=== PATIENT | female | born 1985 | race Caucasian/White ===

== ENCOUNTER 2018-03-27 13:23 | Emergency (ER) | END 2018-03-27 16:36 | disposition home or self-care (01) ==

== ENCOUNTER 2018-08-05 06:38 | Emergency (ER) | payer OTHER ==
[~2018-08-05] VITALS: Ht 167.6 cm; Wt 126.4 kg
[~2018-08-05 06:38] MED LIST: ACET500C5 PO; FOLI-49 PO; HYDR-4011 PO; HYDR25TA6 PO; ONDA4TAB14 PO; PRENAT PO; RANI150T5 PO
[2018-08-05 06:43] VITALS: Ht 167.6 cm; Wt 126.4 kg
[2018-08-05] MEDS ORDERED: SOD CHLORIDE 0.9% 1,000 ML IV STA (07:02)
[2018-08-05] MEDS ORDERED: morphine 2 MG INJ IV STA (07:02)
[2018-08-05] MEDS ORDERED: ONDANSETRON 4 MG INJ IV STA (07:02)
[2018-08-05] MEDS ORDERED: FAMOTIDINE 20 MG INJ IV STA (07:02)
--- NOTE | 2018-08-05 07:02 | ERD ---
ER Documentation Chief Complaint Chief Complaint upper abdominal pain radiating to back this morning, + vomiting HPI 33-year-old female, with history of cholelithiasis the pain is dull,, presents the emergency department, complaining of acute onset of right upper quadrant abdominal pain, radiating to the back. Constant, 4/10. No fever, no chills. The patient also reports 3 episodes of postprandial emesis. ROS All systems reviewed and are negative except as per history of present illness. Medications Home Meds Active Scripts Acetaminophen* (Tylenol*) 325 Mg Tablet, 2 TAB PO Q8 PRN for PAIN AND OR ELEVATED TEMP, #20 TAB Prov:JUSTEN BAUER MD 08/05/18 Ranitidine Hcl* (Zantac*) 150 Mg Tablet, 150 MG PO BID PRN for EPIGASTRIC PAIN, #10 TAB Prov:JUSTEN BAUER MD 08/05/18 Acetaminophen* (Tylophen*) 500 Mg Capsule, 1 CAP PO Q6H PRN for PAIN AND OR ELEVATED TEMP, #20 CAP Prov:JUSTEN BAUER MD 03/27/18 Ranitidine Hcl* (Ranitidine Hcl*) 150 Mg Tablet, 150 MG PO Q12, #60 TAB Prov:JUSTEN BAUER MD 03/27/18 Ondansetron (Ondansetron Odt) 4 Mg Tab.rapdis, 4 MG PO Q6H PRN for NAUSEA AND/OR VOMITING, #20 TAB Prov:AUDRA SAEZ PA-C 02/10/16 Hydrocodone/Acetaminophen ([place] 5-325 Tablet) 1 Each Tablet, 1 TAB PO Q6H PRN f or PAIN, #20 TAB Prov:AUDRA SAEZ PA-C 02/10/16 Reported Medications Folic Acid* (Folic Acid*) 1 Mg Tablet, 1 MG PO DAILY, TAB 04/20/14 Multivit/Min/Fol Ac/Iron/Pren* ( S*) 1 Tab Tab, 1 TAB PO DAILY, TAB 04/20/14 Hydrochlorothiazide* (Hydrochlorothiazide*) 25 Mg Tab, 25 MG PO DAILY, TAB 04/20/14 Allergies Allergies: Coded Allergies: No Known Allergies (Verified Allergy, Mild, 08/05/18) PMhx/Soc History of Surgery: No Anesthesia Reaction: No Hx Neurological Disorder: No Hx Respiratory Disorders: No Hx Cardiac Disorders: No Hx Psychiatric Problems: No Hx Miscellaneous Medical Probl: No Hx Alcohol Use: No Hx Substance Use: No Hx Tobacco Use: No FmHx Family History: diabetes; No coronary disease Physical Exam Vitals Vital Signs Date Temp Pulse Resp B/P (MAP) Pulse Ox O2 O2 Flow FiO2 Time Delivery Rate 08/05/18 97.9 86 18 143/87 99 06:43 (105) Physical Exam Const: No acute distress Head: Atraumatic Eyes: Normal Conjunctiva ENT: Normal External Ears, Nose and Mouth. Neck: Full range of motion. No meningismus. Resp: Clear to auscultation bilaterally Cardio: Regular rate and rhythm, no murmurs Abd: Soft, tender in the right upper quadrant area,? Becerra sign. Normal bowel sounds Skin: No petechiae or rashes Back: No midline or flank tenderness Ext: No cyanosis, or edema Neur: Awake and alert Psych: Normal Mood and Affect Result Diagram: 08/05/18 0729 08/05/18 0729 Results 24 hrs Laboratory Tests Test 08/05/18 07:29 White Blood Count 10.0 10^3/ul Red Blood Count 4.57 10^6/ul Hemoglobin 13.9 g/dl Hematocrit 40.8 % Mean Corpuscular Volume 89.3 fl Mean Corpuscular Hemoglobin 30.4 pg Mean Corpuscular Hemoglobin Concent 34.1 g/dl Red Cell Distribution Width 12.5 % Platelet Count 315 10^3/UL Mean Platelet Volume 10.1 fl Immature Granulocytes % 0.300 % Neutrophils % 70.8 % Lymphocytes % 20.7 % Monocytes % 5.8 % Eosinophils % 1.8 % Basophils % 0.6 % Nucleated Red Blood Cells % 0.0 /100WBC Immature Granulocytes # 0.030 10^3/ul Neutrophils # 7.1 10^3/ul Lymphocytes # 2.1 10^3/ul Monocytes # 0.6 10^3/ul Eosinophils # 0.2 10^3/ul Basophils # 0.1 10^3/ul Nucleated Red Blood Cells # 0.0 10^3/ul Urine Color YELLOW Urine Clarity CLEAR Urine pH 5.0 Urine Specific [place] 1.021 Urine Ketones NEGATIVE mg/dL Urine Nitrite NEGATIVE mg/dL Urine Bilirubin NEGATIVE mg/dL Urine Urobilinogen NEGATIVE mg/dL Urine Leukocyte Esterase NEGATIVE Miguel/ul Urine Microscopic RBC 7 /HPF Urine Microscopic WBC 2 /HPF Urine Mucus FEW /HPF Urine Hemoglobin 2+ mg/dL Urine Glucose NEGATIVE mg/dL Urine Total Protein NEGATIVE mg/dl Sodium Level 143 mmol/L Potassium Level 4.1 mmol/L Chloride Level 106 mmol/L Carbon Dioxide Level 28 mmol/L Anion Gap 9 Blood Urea Nitrogen 10 mg/dl Creatinine 0.53 mg/dl Est Glomerular Filtrat Rate mL/min > 60 mL/min Glucose Level 110 mg/dl Calcium Level 9.3 mg/dl Total Bilirubin 0.6 mg/dl Direct Bilirubin 0.00 mg/dl Indirect Bilirubin 0.6 mg/dl Aspartate Amino Transf (AST/SGOT) 25 IU/L Alanine Aminotransferase (ALT/SGPT) 24 IU/L Alkaline Phosphatase 140 IU/L Total Protein 7.8 g/dl Albumin 4.2 g/dl Globulin 3.60 g/dl Albumin/Globulin Ratio 1.16 Lipase 85 U/L Serum HCG, Qualitative NEGATIVE Current Medications Medications Dose Sig/Rosy Start Time Status Last (Trade) Ordered Route PRN Stop Time Admin Dose Reason Admin Sodium 1,000 ml @ Q1H STAT 08/05/18 DC 08/05/18 Chloride 1,000 mls/hr IV 07:02 07:39 08/05/18 08:01 Morphine 1 mg ONCE STAT 08/05/18 DC 08/05/18 Sulfate IV 07:02 07:39 (morphine) 08/05/18 07:07 Ondansetron 4 mg ONCE STAT 08/05/18 DC 08/05/18 HCl (Zofran IV 07:02 07:39 Inj) 08/05/18 07:07 Famotidine 20 mg ONCE STAT 08/05/18 DC 08/05/18 (Pepcid Iv) IV 07:02 07:39 08/05/18 07:07 Patient: NAVEED MEEHAN : 1985 Age: 33 Sex: F MR #: [id number] DOS: 08/05/18701 Ordering MD: JUSTEN BAUER MD Location: [facility] Room/Bed: PROCEDURE: ULTRASOUND LIMITED ABDOMEN CLINICAL INDICATION: 33-year-old female with abdominal pain. TECHNIQUE: Multiple sonographic of the right upper quadrant of the abdomen were obtained. The images were reviewed on a PACS workstation. COMPARISON: Right upper quadrant ultrasound March 27, 2018. FINDINGS: The pancreas is partially visualized and is otherwise without abnormal echogenicity. The liver displays diffuse increased echogenicity. The liver measures 18.0 cm in length. No evidence of intrahepatic biliary ductal dilatation is seen. The portal and hepatic veins are unremarkable. The gallbladder contains a shadowing stone measuring approximately 2.3 cm. The gallbladder wall thickness is within normal limits measuring 2.3 mm. No pericholecystic fluid is seen. The common bile duct measures 4.2 mm and is not dilated. The right kidney displays normal echogenicity. The right kidney measures 13.2 cm in maximal length. No caliectasis or hydronephrosis is seen. No free fluid is seen. IMPRESSION: 1. Hepatic steatosis. 2. Cholelithiasis. Procedures/MDM Vital signs stable. Differential diagnosis include but not limited to: UTI, colitis, gastroenteritis, kidney stones, irritable bowel syndrome, inflammatory bowel syndrome, malabsorption syndrome, cholelithiasis, food intolerance, medication side effect, pancreatitis, diverticulitis, bowel obstruction. Physical examination and clinical presentation consistent most likely with biliary colic, no evidence of acute cholecystitis. During the ED course the patient remained stable, no new complaints. The patient received treatment with IV fluids and IV medications presenting overall improvem ent of the symptoms. Results and clinical impression discussed with the patient who agrees with avelina cordova. The patient is stable to be treated outpatient and will be discharged home; some side effects of prescribed medications (headache, rash, nausea, vomiting, diarrhea, drowsiness, habituation, bleeding, hypertension, interactions with other medications) were reviewed. Follow up with the primary care provider in the next 48h is recommended. If symptoms persist, worsen or new symptoms develop, then patient should return to the ED immediately. Instructions explained and given directly by me to the patient with acknowledgment and demonstrated understanding. Disclaimer: Inadvertent spelling and grammatical errors are likely due to EHR/dictation software use and do not reflect on the overall quality of patient care. Also, please note that the electronic time recorded on this note does not necessarily reflect the actual time of the patient encounter. Departure Diagnosis: Primary Impression: Biliary colic Condition: Stable Additional Instructions: Thank you very much for allowing us to participate in your care. Your health and safety is our top priority at [facility]. Call your primary care doctor TOMORROW for an appointment during the next 2-4 days and bring all the information and medications prescribed. Have prescriptions filled and follow precisely the directions on the label. If the symptoms get worse and your provider is unavailable, return to the Emergency Department immediately. JUSTEN BAUER MD Aug 05, 2018 07:02
[2018-08-05] MEDS ORDERED: RANI150T35 PO (08:24)
[2018-08-05] MEDS ORDERED: ACET325T33 PO (08:24)
[2018-08-05 08:58] VITALS: BP 161/86; PULSE 74; RESP 17
== END 2018-08-05 09:09 | disposition home or self-care (01) ==
LOC: FTE 06:38
DX: K80.20 Calculus of gallbladder without cholecystitis without obstruction (principal)
CPT/HCPCS: 76705; 80053; 81001; 83690; 84703; 85025; J2270; J2405; J7030; Z7610; 36415; 96361; 96374; 96375

== ENCOUNTER 2018-10-27 21:45 | Emergency (ER) | payer OTHER ==
[~2018-10-27] VITALS: Ht 167.6 cm; Wt 128.5 kg
[~2018-10-27 21:45] MED LIST changes: +ACET325T33 PO; +RANI150T35 PO
[2018-10-27 22:01] VITALS: BP 158/83; PULSE 81; RESP 18; Ht 167.6 cm; Wt 128.5 kg
[2018-10-27] MEDS ORDERED: ACETAMINOPHEN 500 MG TAB PO STA (23:44)
--- NOTE | 2018-10-28 02:18 | ERD ---
ER Documentation Chief Complaint Chief Complaint vaginal bleeding/cramping x 1 hour, states 8 weeks HPI History of Present Illness: 33-year-old female who denies a past medical history coming in today with complaint of vaginal bleeding and lower abdominal cramping that is been present for 1 hour prior to arrival. Patient is G4, P2. Reports she is approximately 8 weeks . Patient reports that bleeding is consist ent with a menstrual cycle with very small clotting. At home pharmacological/nonpharmacological treatment for symptoms: Denies Denies social concerns; Denies recent foreign travel ROS All systems reviewed and are negative except as per history of present illness. Medications Home Meds Active Scripts Acetaminophen* (Tylenol*) 325 Mg Tablet, 2 TAB PO Q8 PRN for PAIN AND OR ELEVATED TEMP, #20 TAB Prov:JUSTEN BAUER MD 08/05/18 Ranitidine Hcl* (Zantac*) 150 Mg Tablet, 150 MG PO BID PRN for EPIGASTRIC PAIN, #10 TAB Prov:JUSTEN BAUER MD 08/05/18 Acetaminophen* (Tylophen*) 500 Mg Capsule, 1 CAP PO Q6H PRN for PAIN AND OR ELEVATED TEMP, #20 CAP Prov:JUSTEN BAUER MD 03/27/18 Ranitidine Hcl* (Ranitidine Hcl*) 150 Mg Tablet, 150 MG PO Q12, #60 TAB Prov:JUSTEN BAUER MD 03/27/18 Ondansetron (Ondansetron Odt) 4 Mg Tab.rapdis, 4 MG PO Q6H PRN for NAUSEA AND/OR VOMITING, #20 TAB Prov:AUDRA SAEZ PA-C 02/10/16 Hydrocodone/Acetaminophen ([place] 5-325 Tablet) 1 Each Tablet, 1 TAB PO Q6H PRN for PAIN, #20 TAB Prov:AUDRA SAEZ PA-C 02/10/16 Reported Medications Folic Acid* (Folic Acid*) 1 Mg Tablet, 1 MG PO DAILY, TAB 04/20/14 Multivit/Min/Fol Ac/Iron/Pren* ( S*) 1 Tab Tab, 1 TAB PO DAILY, TAB 04/20/14 Hydrochlorothiazide* (Hydrochlorothiazide*) 25 Mg Tab, 25 MG PO DAILY, TAB 04/20/14 Allergies Allergies: Coded Allergies: No Known Allergies (Verified Allergy, Mild, 10/27/18) PMhx/Soc History of Surgery: Yes (c section x 2) Anesthesia Reaction: No Hx Neurological Disorder: No Hx Respiratory Disorders: No Hx Cardiac Disorders: No Hx Psychiatric Problems: No Hx Miscellaneous Medical Probl: No Hx Alcohol Use: No Hx Substance Use: No Hx Tobacco Use: No Smoking Status: Never smoker FmHx Family History: diabetes, coronary disease Physical Exam Vitals Vital Signs Date Temp Pulse Resp B/P (MAP) Pulse Ox O2 O2 Flow FiO2 Time Delivery Rate 10/27/18 99.3 81 18 158/83 100 22:01 (108) Physical Exam Const: No acute distress, afebrile Head: Atraumatic Eyes: Normal Conjunctiva ENT: Normal External Ears, Nose and Mouth. Neck: Full range of motion. No meningismus. Resp: Clear to auscultation bilaterally Cardio: Regular rate and rhythm, no murmurs Abd: Soft, non tender, non distended. No guarding, no masses, no rigidity. Obese. Skin: No petechiae or rashes Back: No midline or flank tenderness Ext: No cyanosis, or edema Neur: Awake and alert x3, speaking in clear sentences, no focal deficits or facial asymmetry Psych: Normal Mood and Affect Result Diagram: 10/27/18 2351 Results 24 hrs Laboratory Tests Test 10/27/18 23:51 White Blood Count 12.2 10^3/ul Red Blood Count 4.25 10^6/ul Hemoglobin 12.9 g/dl Hematocrit 38.1 % Mean Corpuscular Volume 89.6 fl Mean Corpuscular Hemoglobin 30.4 pg Mean Corpuscular Hemoglobin Concent 33.9 g/dl Red Cell Distribution Width 13.0 % Platelet Count 301 10^3/UL Mean Platelet Volume 10.7 fl Immature Granulocytes % 0.300 % Neutrophils % 67.2 % Lymphocytes % 24.1 % Monocytes % 6.1 % Eosinophils % 1.8 % Basophils % 0.5 % Nucleated Red Blood Cells % 0.0 /100WBC Immature Granulocytes # 0.040 10^3/ul Neutrophils # 8.2 10^3/ul Lymphocytes # 2.9 10^3/ul Monocytes # 0.7 10^3/ul Eosinophils # 0.2 10^3/ul Basophils # 0.1 10^3/ul Nucleated Red Blood Cells # 0.0 10^3/ul Urine Color YELLOW Urine Clarity SLIGHTLY CLOUDY Urine pH 6.0 Urine Specific [place] 1.016 Urine Ketones NEGATIVE mg/dL Urine Nitrite NEGATIVE mg/dL Urine Bilirubin NEGATIVE mg/dL Urine Urobilinogen 1+ mg/dL Urine Leukocyte Esterase NEGATIVE Miguel/ul Urine Microscopic RBC 2 /HPF Urine Microscopic WBC 0 /HPF Urine Bacteria FEW /HPF Urine Hemoglobin 2+ mg/dL Urine Glucose NEGATIVE mg/dL Urine Total Protein NEGATIVE mg/dl Beta HCG, Quantitative 099575.0 mIU/ml Current Medications Medications Dose Sig/Rosy Start Time Status Last (Trade) Ordered Route PRN Stop Time Admin Dose Reason Admin 1,000 mg ONCE STAT 10/27/18 DC 10/27/18 Acetaminophen PO 23:44 23:58 (Tylenol 10/27/18 23:46 Tab) Procedures/MDM ED course includes a thorough examination and history. Medications Tylenol imaging: OB pelvic ultrasound Labs: CBC, beta quantitative, urinalysis, Rh Low suspicion for life-threatening medical emergency. Low suspicion for gy necologic/obstetrical emergency that requires hospitalization or immediate surgical intervention. Low suspicion for hemorrhage. Low suspicion for acute abdominal emergency. Low suspicion for infectious process that requires antibiotics. Otherwise healthy patient presenting with constellation of symptoms likely representing vaginal bleeding during /threatened as characterized by history, physical exam findings, lab findings, ultrasound findings. CBC: no e/o of systemic infection or severe anemia. Beta quantitative is 102k. Urinalysis negative for urinary tract infection. Rh is O+, no RhoGam indicated Patient reassessment 0205: No signs of hemorrhage at this time, bleeding has not worsened. Patient hemodynamically stable. No respiratory distress, otherwise relatively well appearing and nontoxic. Disposition given. Patient educated on diagnoses, prescriptions, follow-up care, return precautions. Strict return precautions given for worsening condition; questions answered discharge. Patient verbalizes understanding of discharge instructions as well as plan of care, return precautions, follow-up. Disposition for discharge with followup in 2 days with PCP/clinic. Departure Diagnosis: Primary Impression: Threatened miscarriage Additional Impression: Vaginal bleeding in patient at less than 20 weeks ges... Condition: Stable Patient Instructions: Bleeding During Early , Possible Miscarriage (Threatened ) Referrals: COMMUNITY CLINICS YOU HAVE RECEIVED A MEDICAL SCREENING EXAM AND THE RESULTS INDICATE THAT YOU DO NOT HAVE A CONDITION THAT REQUIRES URGENT TREATMENT IN THE EMERGENCY DEPARTMENT. FURTHER EVALUATION AND TREATMENT OF YOUR CONDITION CAN WAIT UNTIL YOU ARE SEEN IN YOUR DOCTORS OFFICE WITHIN THE NEXT 1-2 DAYS. IT IS YOUR RESPONSIBILITY TO MAKE AN APPOINTMENT FOR FOLOW-UP CARE. IF YOU HAVE A PRIMARY DOCTOR --you should call your primary doctor and schedule an appointment IF YOU DO NOT HAVE A PRIMARY DOCTOR YOU CAN CALL OUR PHYSICIAN REFERRAL HOTLINE AT IF YOU CAN NOT AFFORD TO SEE A PHYSICIAN YOU CAN CHOSE FROM THE FOLLOWING [facility] [address] [facility]. [facility] [address] [facility]. [facility] [address] [facility] [address] [facility] [address] [facility]. [facility] [address] [facility]. [facility] YOU HAVE RECEIVED A MEDICAL SCREENING EXAM AND THE RESULTS INDICATE THAT YOU DO NOT HAVE A CONDITION THAT REQUIRES URGENT TREATMENT IN THE EMERGENCY DEPARTMENT. FURTHER EVALUATION AND TREATMENT OF YOUR CONDITION CAN WAIT UNTIL YOU ARE SEEN IN YOUR DOCTORS OFFICE WITHIN THE NEXT 1-2 DAYS. IT IS YOUR RESPONSIBILITY TO MAKE AN APPOINTMENT FOR FOLOW-UP CARE. IF YOU HAVE A PRIMARY DOCTOR --you should call your primary doctor and schedule and appointment IF YOU DO NOT HAVE A PRIMARY DOCTOR YOU CAN CALL OUR PHYSICIAN REFERRAL HOTLINE AT . IF YOU CAN NOT AFFORD TO SEE A PHYSICIAN YOU CAN CHOSE FROM THE FOLLOWING [facility]: [facility] [address] [place] [address] [facility] [address] [place] [address] [facility] [address] [place] [address] [employer] [place] [address] [facility] [address] [place] [address] OFFICE FAX CARMINE DEVINE [address] [place] [id number] ( DR[address] FORDE AMISH [address] [facility] [place] [address] DR BOWMAN, [facility] [address] [facility], [address], [place] [address] JEIMY SAHURO [address] [facility] [place] [address] [facility] [address] [facility] [place] [address] [address] [facility], [facility] [address] - [address] [place] [address] [place] [address] [facility]. [address], [place] [address] [address] MORAN, [facility] [address] [place] [address] Additional Instructions: Thank you very much for allowing us to participate in your care. Your health and safety is our top priority at [facility]. It is important to read all discharge instructions and education provided in your discharge packet. *There is a heartbeat on the ultrasound at this time. Is very important to return to the emergency department if you develop worsening bleeding. Signs of life-threatening hemorrhage include soaking 1 pad per hour.* Call your primary care doctor/[employer] TOMORROW for an appointment during the next 2-4 days and bring all the information. If the symptoms get worse and your provider is unavailable, return to the Emergency Department immediately. KERA MARTINS NP Oct 28, 2018 02:18
== END 2018-10-28 02:14 | disposition home or self-care (01) ==
LOC: FTE 21:45
DX: O03.9 Complete or unspecified spontaneous abortion without complication (principal); R10.2 Pelvic and perineal pain; Z3A.08 8 weeks gestation of pregnancy
CPT/HCPCS: 36415; 76801; 81001; 84702; 85025; 86900; 86901; Z7502; Z7610

== ENCOUNTER 2018-11-30 00:25 | Emergency (ER) | payer OTHER ==
[~2018-11-30] VITALS: Ht 167.6 cm; Wt 126.1 kg
[2018-11-30 00:28] VITALS: Ht 167.6 cm; Wt 126.1 kg
[2018-11-30] MEDS ORDERED: ACETAMINOPHEN 325 MG TAB PO ONE (04:30)
--- NOTE | 2018-11-30 05:38 | ERD ---
ER Documentation Chief Complaint Chief Complaint vaginal bleeding x 30 minutes, states 13 weeks HPI 33-year-old female who is reportedly 13 weeks , G4, , last menstrual cycle 08/28/2018 presents with complaints of sudden onset heavy vaginal bleeding with clotting just prior to arrival. She also reports mild vaginal discomfort. She took no medication for relief of symptoms. She did have a normal ultrasound during this on 11/22/2018. This ultrasound did show positive heart tones. Patient denies any other symptoms at this time. ROS All systems reviewed and are negative except as per history of present illness. Medications Home Meds Active Scripts Acetaminophen* (Tylenol*) 325 Mg Tablet, 2 TAB PO Q8 PRN for PAIN AND OR ELEVATED TEMP, #20 TAB Prov:JUSTEN BAUER MD 08/05/18 Ranitidine Hcl* (Zantac*) 150 Mg Tablet, 150 MG PO BID PRN for EPIGASTRIC PAIN, #10 TAB Prov:JUSTEN BAUER MD 08/05/18 Acetaminophen* (Tylophen*) 500 Mg Capsule, 1 CAP PO Q6H PRN for PAIN AND OR ELEVATED TEMP, #20 CAP Prov:JUSTEN BAUER MD 03/27/18 Ranitidine Hcl* (Ranitidine Hcl*) 150 Mg Tablet, 150 MG PO Q12, #60 TAB Prov:JUSTEN BAUER MD 03/27/18 Ondansetron (Ondansetron Odt) 4 Mg Tab.rapdis, 4 MG PO Q6H PRN for NAUSEA AND/OR VOMITING, #20 TAB Prov:AUDRA SAEZ PA-C 02/10/16 Hydrocodone/Acetaminophen ([place] 5-325 Tablet) 1 Each Tablet, 1 TAB PO Q6H PRN for PAIN, #20 TAB Prov:AUDRA SAEZ PA-C 02/10/16 Reported Medications Folic Acid* (Folic Acid*) 1 Mg Tablet, 1 MG PO DAILY, TAB 04/20/14 Multivit/Min/Fol Ac/Iron/Pren* ( S*) 1 Tab Tab, 1 TAB PO DAILY, TAB 04/20/14 Hydrochlorothiazide* (Hydrochlorothiazide*) 25 Mg Tab, 25 MG PO DAILY, TAB 04/20/14 Allergies Allergies: Coded Allergies: No Known Allergies (Verified Allergy, Mild, 10/27/18) PMhx/Soc History of Surgery: Yes (c section x 2) Anesthesia Reaction: No Hx Neurological Disorder: No Hx Respiratory Disorders: No Hx Cardiac Disorders: No Hx Psychiatric Problems: No Hx Miscellaneous Medical Probl: No Hx Alcohol Use: No Hx Substance Use: No Hx Tobacco Use: No FmHx Family History: No diabetes Physical Exam Vitals Vital Signs Date Temp Pulse Resp B/P (MAP) Pulse Ox O2 O2 Flow FiO2 Time Delivery Rate 11/30/18 98.4 87 18 154/83 97 00:28 (106) Physical Exam Const: No acute distress Head: Atraumatic Eyes: Normal Conjunctiva ENT: Normal External Ears, Nose and Mouth. Neck: Full range of motion. No meningismus. Resp: Clear to auscultation bilaterally Cardio: Regular rate and rhythm, no murmurs Abd: Soft, non tender, non distended. Normal bowel sounds. No rebound tenderness or guarding. No McBurney's point tenderness. Skin: No petechiae or rashes Back: No midline or flank tenderness Ext: No cyanosis, or edema Neur: Awake and alert Psych: Normal Mood and Affect Result Diagram: 11/30/18 0129 11/30/18 0129 Results 24 hrs Laboratory Tests Test 11/30/18 01:25 11/30/18 01:29 Urine Color YELLOW Urine Clarity CLEAR Urine pH 6.0 Urine Specific [facility] 1.010 Urine Ketones NEGATIVE mg/dL Urine Nitrite NEGATIVE mg/dL Urine Bilirubin NEGATIVE mg/dL Urine Urobilinogen NEGATIVE mg/dL Urine Leukocyte Esterase NEGATIVE Miguel/ul Urine Microscopic RBC 46 /HPF Urine Microscopic WBC 2 /HPF Urine Mucus FEW /HPF Urine Hemoglobin 3+ mg/dL Urine Glucose NEGATIVE mg/dL Urine Total Protein NEGATIVE mg/dl White Blood Count 10.7 10^3/ul Red Blood Count 4.26 10^6/ul Hemoglobin 12.9 g/dl Hematocrit 38.3 % Mean Corpuscular Volume 89.9 fl Mean Corpuscular Hemoglobin 30.3 pg Mean Corpuscular Hemoglobin Concent 33.7 g/dl Red Cell Distribution Width 13.1 % Platelet Count 245 10^3/UL Mean Platelet Volume 10.5 fl Immature Granulocytes % 0.400 % Neutrophils % 72.7 % Lymphocytes % 19.8 % Monocytes % 5.4 % Eosinophils % 1.4 % Basophils % 0.3 % Nucleated Red Blood Cells % 0.0 /100WBC Immature Granulocytes # 0.040 10^3/ul Neutrophils # 7.8 10^3/ul Lymphocytes # 2.1 10^3/ul Monocytes # 0.6 10^3/ul Eosinophils # 0.2 10^3/ul Basophils # 0.0 10^3/ul Nucleated Red Blood Cells # 0.0 10^3/ul Sodium Level 139 mmol/L Potassium Level 4.5 mmol/L Chloride Level 107 mmol/L Carbon Dioxide Level 25 mmol/L Anion Gap 7 Blood Urea Nitrogen 9 mg/dl Creatinine 0.51 mg/dl Est Glomerular Filtrat Rate mL/min > 60 mL/min Glucose Level 125 mg/dl Calcium Level 9.6 mg/dl Total Bilirubin 0.5 mg/dl Direct Bilirubin 0.00 mg/dl Indirect Bilirubin 0.5 mg/dl Aspartate Amino Transf (AST/SGOT) 15 IU/L Alanine Aminotransferase (ALT/SGPT) 19 IU/L Alkaline Phosphatase 82 IU/L Total Protein 7.3 g/dl Albumin 3.8 g/dl Globulin 3.50 g/dl Albumin/Globulin Ratio 1.08 Beta HCG, Quantitative 04945.0 mIU/ml Current Medications Medications Dose Sig/Rosy Start Time Status Last (Trade) Ordered Route PRN Stop Time Admin Dose Reason Admin 650 mg ONCE ONCE 11/30/18 DC 11/30/18 Acetaminophen PO 04:30 04:10 (Tylenol 11/30/18 04:31 Tab) [place] [id number] Radiology Main Line: [phone] DIAGNOSTIC IMAGING REPORT Patient: NAVEED MEEHAN : 1985 Age: 33 Sex: F MR #: [id number] DOS: 11/30/18 0000 Ordering MD: JAMEEL DAVIS PA-C Location: [facility] Room/Bed: PROCEDURE: US OB. CLINICAL INDICATION: Uncertain size and dates. Vaginal bleeding. TECHNIQUE: Multiple sonographic images of the uterus were obtained. The images were reviewed on a PACS workstation. COMPARISON: No prior studies are available for comparison. FINDINGS: There is a single live intrauterine gestation. heart rate is 174 beats per minute. Measurements were made in order to determine age. The results are as follows: BPD = 2.42 cm. HC = 8.82 cm. AC = 8.27 cm. FL = 1.53 cm. Estimated weight is 99 +/- 15 grams. LMP growth percentile is 96 %. Maximum vertical pocket of amniotic fluid is 3.7 cm. Menstrual age by ultrasound dates is 14 weeks 2 days. The estimated date of delivery is 05/29/2019. Position is cephalic and placenta is anterior grade 0. There is no evidence for an abruption or placenta previa. IMPRESSION: 1. Single live intrauterine gestation of 14 weeks 2 days gestational age by ultrasound dates. 2. The estimated date of delivery is 05/29/2019. RPTAT: QQ .Clint Post MD, Date Time Electronically viewed and signed by .Clint Post MD, on 11/30/2018 02:14 .R/ CC: JAMEEL DAVIS PA-C [id number] . [place] [id number] Radiology Main Line: [phone] DIAGNOSTIC IMAGING REPORT Patient: NAVEED MEEHAN : 1985 Age: 33 Sex: F MR #: [id number] DOS: 11/30/18 0000 Ordering MD: JAMEEL DAVIS PA-C Location: [facility] Room/Bed: PROCEDURE: US OB limited CLINICAL INDICATION: vaginal bleeding TECHNIQUE: Limited transabdominal scan COMPARISON: Study from earlier FINDINGS: An extremely limited study was performed with only 2 actual images submitted for review. 1 image shows M-mode ultrasound over the fetus with heart rate of 142 beats per minute. The other imaged shows an anterior placenta and on identified portions of the fetus. IMPRESSION: Extremely limited exam showing cardiac activity and anterior placenta. RPTAT: [facility]BE Physician Daniel Date Time Electronically viewed and signed by Mireya Stewart Physician on 11/30/2018 05:16 LE/ CC: JAMEEL DAVIS PA-C [id number] Procedures/MDM 33-year-old female presents to the emergency department complaining of sudden onset vaginal bleeding just prior to arrival. Obstetrics ultrasound showed an intrauterine which was live with positive heart tones. Patient continued to have vaginal bleeding in the department and she passed a large amount of clots and was consistently concerned about the and requested repeat ultrasound. Due to possibility of passing the in the department, I did order repeat ultrasound which again did show positive heart tones. Beta hCG was consistent with term of . Patient's symptoms stabilized within the department and she was stable for discharge and further follow-up with her DEVELOPMENT REPRESENTATIVE physician within the next 24 to 48 hours. She should return here immediately for any new, worsening, or concerning symptoms. The patient was in agreement with the diagnosis, plan, need for follow-up, return precautions. No evidence to suggest tubo-ovarian abscess, ectopic , PID, or other emergencies. Departure Diagnosis: Primary Impression: Vaginal bleeding in patient at less than 20 weeks ges... Condition: Fair Patient Instructions: Bleeding During Early Additional Instructions: SPECIALIST: YOU HAVE A MEDICAL CONDITION WHICH REQUIRES YOU TO SEE A SPECIALIST WITHIN THE NEXT 1-2 DAYS. PLEASE FOLLOW UP WITH YOUR PRIMARY PHYSICIAN FOR REFFERAL.IF YOU DO NOT HAVE A PRIMARY CARE PHYSICIAN AND/OR YOU CAN NOT AFFORD TO SEE A PHYSICIAN THE FOLLOWING RESOURCES HAVE BEEN SUPPLIED TO YOU. IT IS YOUR RESPONSIBILITY TO BE SEEN BY THE SPECIALIST: JAMEEL MARLEY PA-C Nov 30, 2018 05:38
[2018-11-30 05:41] VITALS: BP 138/88; PULSE 72; RESP 18
== END 2018-11-30 05:42 | disposition home or self-care (01) ==
LOC: FTE 00:25
DX: O20.9 Hemorrhage in early pregnancy, unspecified (principal); R10.2 Pelvic and perineal pain; Z3A.14 14 weeks gestation of pregnancy
CPT/HCPCS: 36415; 76805; 80053; 81001; 84702; 85025; 86900; 86901; Z7502; Z7610